=== PATIENT | male | born 1945 | race Caucasian/White ===

== ENCOUNTER 2019-01-20 09:04 | Emergency (ER) | payer OTHER ==
[2019-01-20] MEDS: DEXAMETHASONE 10 MG/ML 1 ML INJ IM (10:05)
[2019-01-20] MEDS: DIAZEPAM 5 MG TAB PO (10:05)
[2019-01-20] MEDS: KETOROLAC 60 MG INJ IM (10:05)
== END 2019-01-20 10:33 | disposition home or self-care (01) ==
LOC: FTE 09:04
DX: M54.5 Low back pain (principal)
CPT/HCPCS: 96372; 99284-25